=== PATIENT | male | born 1970 | race Caucasian/White ===

== ENCOUNTER 2016-05-25 18:41 | Inpatient (IN) | payer MEDICAID ==
[~2016-05-25] VITALS: Ht 165.1 cm; Wt 81.2 kg
[2016-05-25 19:28] LABS: INFLUENZA B NEGATIVE
[2016-05-25 19:30] LABS: BASO % 0.7 % (0.0-2.0); GRAN # 2.5 (1.4-6.5); GRAN % 90.2 % (42.2-75.2); HEMATOCRIT 24.3 % (42.0-52.0); HEMOGLOBIN 8.4 g/dl (13.5-18.0); LYMPH # 0.2 (1.2-3.4); LYMPH % 8.3 % (20.0-51.0); MEAN CELL VOLUME 87 fl (80.0-100.0); MEAN CORPUSCULAR HEMOGLOBIN 30 pg (27.0-31.0); MEAN CORPUSCULAR HGB CONC 35 g/dl (33.0-37.0); MEAN PLATELET VOLUME 11.6 fl (7.4-10.4); MONO % 0.4 % (1.7-9.3); PLATELET COUNT 75 K/mm3 (130-400); RED BLOOD COUNT 2.78 M/mm3 (4.20-5.60); WHITE BLOOD COUNT 2.8 K/mm3 (4.8-10.8)
[2016-05-25 19:39] LABS: ADJUSTED CALCIUM 8.9 mg/dL (8.4-10.2); ALBUMIN 2.1 gm/dL (3.5-5.0); BILIRUBIN,TOTAL 0.9 mg/dL (0.0-1.0); CALCIUM 7.4 mg/dL (8.4-10.2); CREATININE, serum 1.91 mg/dL (0.66-1.25); POTASSIUM 3.8 mmol/L (3.4-5.0); TOTAL PROTEIN 5.4 gm/dL (6.4-8.2)
[2016-05-25 19:40] LABS: PROTHROMBIN TIME 11.1 SECONDS (9.7-12.8)
[2016-05-25 21:09] LABS: PH 5 (5-8); SQUAMOUS EPITHELIAL 0-2 /hpf; URINE APPEARANCE Hazy; URINE BACTERIA Rare /hpf; URINE BILIRUBIN Negative (NEGATIVE); URINE BLOOD 2+ (NEGATIVE); URINE COLOR Yellow; URINE GLUCOSE 3+ (NEGATIVE); URINE KETONE Negative (NEGATIVE); URINE UROBILINOGEN Negative (NEGATIVE)
[2016-05-25 21:45] LABS: CEREBROSPINAL TUBE #4; CSF APPEARANCE CLEAR; CSF COLOR COLORLESS
[2016-05-25 22:03] LABS: TROPONIN-I 0.023 ng/mL (0.000-0.034)
[2016-05-25 23:56] VITALS: BP 127/84; PULSE 117; TEMP 101.3
[2016-05-26] VITALS (621 sets, daily range): BP systolic 93–135; BP diastolic 65–99; PULSE 85–114; TEMP 97.5–101.3; O2SAT 77–100
[2016-05-27] VITALS (811 sets, daily range): BP systolic 107–171; BP diastolic 67–111; PULSE 86–144; TEMP 98.3–99.7; O2SAT 80–100
[2016-05-27 08:11] LABS: ARTERIAL BLD GAS O2 SATURATION 96.9 % (92-100); ARTERIAL BLD GAS TCO2 CT 16.6; ARTERIAL BLOOD GAS BASE EXCESS -9.5 (-2-2); ARTERIAL BLOOD GAS HCO3 15.6 meq/L (22-26); ARTERIAL BLOOD GAS PHT 7.31 C (7.35-7.45); ARTERIAL BLOOD GAS PO2 98.6 mmHg (80-100); ARTERIAL BLOOD GAS PO2T 98.6 (80-100); ARTERIAL BLOOD GAS pH 7.31 (7.35-7.45); OXYHEMOGLOBIN 95.8 %
[2016-05-27 08:12] LABS: ATS? YES
[2016-05-27 08:21] LABS: MEAN CORPUSCULAR HGB CONC 33 g/dl (33.0-37.0); MEAN PLATELET VOLUME 11.4 fl (7.4-10.4); PLATELET COUNT 91 K/mm3 (130-400); REDCELL DISTRIBUTION WIDTH-CV 14.5 % (11.5-14.5); WHITE BLOOD COUNT 4.6 K/mm3 (4.8-10.8)
[2016-05-27 08:23] LABS: ADD PATHOLOGY DIFF REVIEW NO; HEMATOCRIT 31.3 % (42.0-52.0); HEMOGLOBIN 10.3 g/dl (13.5-18.0); MEAN CELL VOLUME 92 fl (80.0-100.0); MEAN CORPUSCULAR HEMOGLOBIN 30 pg (27.0-31.0)
[2016-05-27 08:29] LABS: ALBUMIN 2.6 gm/dL (3.5-5.0); BILIRUBIN,TOTAL 1.6 mg/dL (0.0-1.0); CALCIUM 7.9 mg/dL (8.4-10.2); CREATININE, serum 2.34 mg/dL (0.66-1.25); POTASSIUM 4.3 mmol/L (3.4-5.0); TOTAL PROTEIN 6.6 gm/dL (6.4-8.2)
[2016-05-27 08:50] LABS: BAND 28 % (0-10); BURR CELLS 1+; EOSINOPHIL 1 % (0-4); NEUTROPHILS 45 % (42.0-75.2); PLATELET ESTIMATE DECREASED (NORMAL); SCHISTOCYTES 1+; TOTAL CELLS COUNTED 100
[2016-05-28] VITALS (614 sets, daily range): BP systolic 135–180; BP diastolic 84–103; PULSE 85–103; TEMP 97.5–98.5; O2SAT 75–98
[2016-05-28 05:17] LABS: BASO % 0.6 % (0.0-2.0); EOS # 0.1 (0.0-0.7); EOS % 1.1 % (0-4.0); GRAN # 4.5 (1.4-6.5); GRAN % 70.7 % (42.2-75.2); LYMPH # 1.1 (1.2-3.4); LYMPH % 17.6 % (20.0-51.0); MEAN CELL VOLUME 91 fl (80.0-100.0); MEAN CORPUSCULAR HGB CONC 33 g/dl (33.0-37.0); MONO # 0.6 (0.1-0.6); MONO % 9.1 % (1.7-9.3); PLATELET COUNT 93 K/mm3 (130-400); RED BLOOD COUNT 2.63 M/mm3 (4.20-5.60); REDCELL DISTRIBUTION WIDTH-CV 14.5 % (11.5-14.5); WHITE BLOOD COUNT 6.4 K/mm3 (4.8-10.8)
[2016-05-28 05:27] LABS: HEMATOCRIT 23.9 % (42.0-52.0); HEMOGLOBIN 7.9 g/dl (13.5-18.0); MEAN CORPUSCULAR HEMOGLOBIN 30 pg (27.0-31.0)
[2016-05-28 05:32] LABS: BILIRUBIN,TOTAL 1.3 mg/dL (0.0-1.0); CALCIUM 7.4 mg/dL (8.4-10.2); CREATININE, serum 2.17 mg/dL (0.66-1.25); POTASSIUM 3.2 mmol/L (3.4-5.0); TOTAL PROTEIN 5.3 gm/dL (6.4-8.2)
[2016-05-28 05:41] LABS: TROPONIN-I 0.027 ng/mL (0.000-0.034)
[2016-05-29 04:17] VITALS: BP 157/88; PULSE 84; TEMP 97.9
[2016-05-29 07:50] LABS: BASO # 0.1 (0.0-0.2); BASO % 0.6 % (0.0-2.0); EOS # 0.1 (0.0-0.7); EOS % 0.9 % (0-4.0); GRAN # 5.5 (1.4-6.5); GRAN % 70.4 % (42.2-75.2); LYMPH # 1.4 (1.2-3.4); LYMPH % 18.5 % (20.0-51.0); MEAN CELL VOLUME 91 fl (80.0-100.0); MEAN CORPUSCULAR HGB CONC 33 g/dl (33.0-37.0); MEAN PLATELET VOLUME 11.1 fl (7.4-10.4); MONO # 0.6 (0.1-0.6); MONO % 8.2 % (1.7-9.3); PLATELET COUNT 121 K/mm3 (130-400); RED BLOOD COUNT 2.96 M/mm3 (4.20-5.60); REDCELL DISTRIBUTION WIDTH-CV 14.4 % (11.5-14.5); WHITE BLOOD COUNT 7.8 K/mm3 (4.8-10.8)
[2016-05-29 07:53] LABS: HEMOGLOBIN 8.8 g/dl (13.5-18.0); MEAN CORPUSCULAR HEMOGLOBIN 30 pg (27.0-31.0)
[2016-05-29 08:06] LABS: ADJUSTED CALCIUM 9.6 mg/dL (8.4-10.2); ALBUMIN 2.3 gm/dL (3.5-5.0); BILIRUBIN,TOTAL 1.6 mg/dL (0.0-1.0); CALCIUM 8.2 mg/dL (8.4-10.2); CREATININE, serum 1.88 mg/dL (0.66-1.25); POTASSIUM 3.6 mmol/L (3.4-5.0); TOTAL PROTEIN 6.1 gm/dL (6.4-8.2)
[2016-05-29 10:06] VITALS: BP 165/89; PULSE 93; TEMP 98.1
[2016-05-29 13:10] VITALS: BP 184/97; PULSE 88; TEMP 97.9
[2016-05-29 16:50] VITALS: BP 199/100; PULSE 88; TEMP 97.9
[2016-05-29 20:41] VITALS: BP 159/107; PULSE 91; TEMP 98.2
[2016-05-30 05:42] VITALS: BP 149/95; PULSE 74; TEMP 98.2
[2016-05-30 11:58] VITALS: BP 196/102; PULSE 88; TEMP 97.7
[2016-05-30 14:08] VITALS: BP 177/91; PULSE 86; TEMP 98.3
[2016-05-30 17:21] VITALS: BP 177/91; PULSE 94; TEMP 98.4
[2016-05-30 22:12] VITALS: BP 171/91; PULSE 90; TEMP 98.3
[2016-05-31 00:15] LABS: PROT-CREAT RATIO, URINE 6.2 (())
[2016-05-31 00:29] VITALS: BP 159/63; PULSE 88; TEMP 98.9
[2016-05-31 03:32] VITALS: BP 164/96; PULSE 78; TEMP 98.9
[2016-05-31 05:24] VITALS: BP 139/52; BP 166/96; PULSE 70; TEMP 97.4
[2016-05-31 07:15] LABS: MEAN CELL VOLUME 92 fl (80.0-100.0); MEAN CORPUSCULAR HGB CONC 33 g/dl (33.0-37.0); MEAN PLATELET VOLUME 11.4 fl (7.4-10.4); PLATELET COUNT 161 K/mm3 (130-400); RED BLOOD COUNT 2.92 M/mm3 (4.20-5.60); REDCELL DISTRIBUTION WIDTH-CV 14.5 % (11.5-14.5); WHITE BLOOD COUNT 6.8 K/mm3 (4.8-10.8)
[2016-05-31 07:19] LABS: ADD PATHOLOGY DIFF REVIEW NO; HEMATOCRIT 26.9 % (42.0-52.0); HEMOGLOBIN 8.8 g/dl (13.5-18.0); MEAN CORPUSCULAR HEMOGLOBIN 30 pg (27.0-31.0)
[2016-05-31 07:20] LABS: CALCIUM 8.2 mg/dL (8.4-10.2); CREATININE, serum 1.85 mg/dL (0.66-1.25); POTASSIUM 3.5 mmol/L (3.4-5.0)
[2016-05-31 07:40] LABS: BAND 15 % (0-10); EOSINOPHIL 3 % (0-4); METAMYELOCYTE 1 % (0-0); NEUTROPHILS 55 % (42.0-75.2); PLATELET ESTIMATE NORMAL (NORMAL); TOTAL CELLS COUNTED 100
[2016-05-31 09:04] VITALS: BP 188/102; PULSE 83; TEMP 98.4
[2016-05-31] MEDS ORDERED: PRINIVIL5 MG PO (10:31)
[2016-05-31] MEDS ORDERED: ASPI325T6 PO (10:31)
[2016-05-31] MEDS ORDERED: LOPRESSOR 550 MG/TAB PO (10:31)
[2016-05-31] MEDS ORDERED: LANTUS100 U/ML SC (10:32)
[2016-05-31] MEDS ORDERED: NOVOLOG FLEX100 U/ML SQ (10:33)
[2016-05-31 14:05] VITALS: BP 188/100; PULSE 78; TEMP 98
[2016-06-01] MEDS ORDERED: APIDRA SOLOS100 U/ML SQ (12:28)
[2016-06-02] MEDS ORDERED: ROCEPHIN 2GM VIAL21 IJ (10:28)
[2016-06-02] MEDS ORDERED: CUBICIN 500MG500 MG IV (10:28)
[2016-06-21] MEDS ORDERED: PRINIVIL10 MG PO (10:13)
[2016-06-22] MEDS ORDERED: KLOR-CON M2020 MEQ PO (11:52)
[2016-06-22] MEDS ORDERED: LASIX 40MG TABL40 MG PO (11:53)
== END 2016-05-31 17:50 | disposition home or self-care (01) | DRG 871 ==
LOC: COL.ER 18:41 → ICU 23:25 → SURG 23:25 → IMCU 05-26 15:25 → ICU 05-27 08:20 → SURG 05-28 13:45
PROVIDERS: Emergency Medicine; Internal Medicine; Nurse Practitioner Family
PROC: 009U3ZX Drainage of Spinal Canal, Percutaneous Approach, Diagnostic (ICD-10-PCS; principal; 2016-05-25)
PROC: 02H633Z Insertion of Infusion Device into Right Atrium, Percutaneous Approach (ICD-10-PCS; 2016-05-27)
DX: A41.9 Sepsis, unspecified organism (principal); J96.01 Acute respiratory failure with hypoxia; J69.0 Pneumonitis due to inhalation of food and vomit; N17.9 Acute kidney failure, unspecified; M86.9 Osteomyelitis, unspecified; E11.622 Type 2 diabetes mellitus with other skin ulcer; E11.65 Type 2 diabetes mellitus with hyperglycemia; E11.40 Type 2 diabetes mellitus with diabetic neuropathy, unspecified; L97.519 Non-pressure chronic ulcer of other part of right foot with unspecified severity; D69.6 Thrombocytopenia, unspecified; N50.89 Other specified disorders of the male genital organs; I12.9 Hypertensive chronic kidney disease with stage 1 through stage 4 chronic kidney disease, or unspecified chronic kidney disease; E11.22 Type 2 diabetes mellitus with diabetic chronic kidney disease; N18.9 Chronic kidney disease, unspecified; F17.210 Nicotine dependence, cigarettes, uncomplicated; Z79.4 Long term (current) use of insulin; Z91.14 Patient's other noncompliance with medication regimen
CPT/HCPCS: 99223-AI; 99232-AI; 99233-AI; 99239; A6197; A9537; A9585; C1751; J0692; J0696; J0878; J1200; J1644; J1815; J1885; J2060; J2270; J2543; J2765; J2805; J3370; J3480; J7030; J7050

== ENCOUNTER 2016-06-30 11:06 | Emergency (ER) | payer MEDICAID ==
[~2016-06-30] VITALS: Ht 165.1 cm; Wt 71.4 kg
[~2016-06-30 11:06] MED LIST: APIDRA SOLOS100 U/ML SQ; ASPI325T6 PO; CUBICIN 500MG500 MG IV; KLOR-CON M2020 MEQ PO; LANTUS100 U/ML SC; LASIX 40MG TABL40 MG PO; LOPRESSOR 550 MG/TAB PO; NOVOLOG FLEX100 U/ML SQ; PRINIVIL10 MG PO; PRINIVIL5 MG PO; ROCEPHIN 2GM VIAL21 IJ
[2016-06-30 11:16] VITALS: TEMP 98.2
[2016-06-30 12:09] LABS: BASO % 0.6 % (0.0-2.0); EOS # 0.1 (0.0-0.7); EOS % 2.8 % (0-4.0); GRAN # 3.1 (1.4-6.5); HEMATOCRIT 25.6 % (42.0-52.0); HEMOGLOBIN 8.7 g/dl (13.5-18.0); LYMPH # 1.4 (1.2-3.4); LYMPH % 27.3 % (20.0-51.0); MEAN CELL VOLUME 87 fl (80.0-100.0); MEAN CORPUSCULAR HEMOGLOBIN 30 pg (27.0-31.0); MEAN CORPUSCULAR HGB CONC 34 g/dl (33.0-37.0); MEAN PLATELET VOLUME 11.2 fl (7.4-10.4); MONO # 0.3 (0.1-0.6); MONO % 6.1 % (1.7-9.3); PLATELET COUNT 158 K/mm3 (130-400); RED BLOOD COUNT 2.93 M/mm3 (4.20-5.60); REDCELL DISTRIBUTION WIDTH-CV 14.1 % (11.5-14.5); WHITE BLOOD COUNT 4.9 K/mm3 (4.8-10.8)
[2016-06-30 12:12] LABS: ADJUSTED CALCIUM 9.9 mg/dL (8.4-10.2); ALBUMIN 2.3 gm/dL (3.5-5.0); BILIRUBIN,TOTAL 0.5 mg/dL (0.0-1.0); CALCIUM 8.5 mg/dL (8.4-10.2); CREATININE, serum 1.89 mg/dL (0.66-1.25); POTASSIUM 3.8 mmol/L (3.4-5.0); TOTAL PROTEIN 5.8 gm/dL (6.4-8.2)
[2016-06-30] MEDS ORDERED: ZESTRIL40 MG PO (12:49)
[2016-06-30 12:55] VITALS: BP 154/90; PULSE 92
== END 2016-06-30 13:03 | disposition home or self-care (01) ==
LOC: COL.ER 11:06
PROVIDERS: Emergency Medicine
DX: I10 Essential (primary) hypertension (principal); E11.9 Type 2 diabetes mellitus without complications; Z79.4 Long term (current) use of insulin
CPT/HCPCS: J0360

== ENCOUNTER 2016-07-12 10:00 | Outpatient (RCR) | payer MEDICAID ==
[2016-06-01 10:46] VITALS: BP 190/97; PULSE 92; TEMP 98.2
[2016-06-02 10:28] VITALS: BP 172/88; PULSE 72; TEMP 98
[2016-06-02 10:38] LABS: BASO % 0.5 % (0.0-2.0); EOS # 0.1 (0.0-0.7); EOS % 1.9 % (0-4.0); GRAN # 4.5 (1.4-6.5); GRAN % 70.7 % (42.2-75.2); LYMPH # 1.3 (1.2-3.4); LYMPH % 20.2 % (20.0-51.0); MEAN CELL VOLUME 89 fl (80.0-100.0); MEAN CORPUSCULAR HGB CONC 33 g/dl (33.0-37.0); MEAN PLATELET VOLUME 10.8 fl (7.4-10.4); MONO # 0.4 (0.1-0.6); MONO % 5.6 % (1.7-9.3); PLATELET COUNT 178 K/mm3 (130-400); RED BLOOD COUNT 3.25 M/mm3 (4.20-5.60); REDCELL DISTRIBUTION WIDTH-CV 14.8 % (11.5-14.5); WHITE BLOOD COUNT 6.3 K/mm3 (4.8-10.8)
[2016-06-02 10:48] LABS: HEMATOCRIT 28.8 % (42.0-52.0); HEMOGLOBIN 9.6 g/dl (13.5-18.0); MEAN CORPUSCULAR HEMOGLOBIN 30 pg (27.0-31.0)
[2016-06-02 10:55] LABS: ADJUSTED CALCIUM 9.4 mg/dL (8.4-10.2); ALBUMIN 2.2 gm/dL (3.5-5.0); BILIRUBIN,TOTAL 0.7 mg/dL (0.0-1.0); C-REACTIVE PROTEIN 5.2 mg/dL (0.0-0.9); CREATININE, serum 1.38 mg/dL (0.66-1.25); POTASSIUM 3.1 mmol/L (3.4-5.0); TOTAL PROTEIN 5.8 gm/dL (6.4-8.2)
[2016-06-02 12:23] LABS: ERYTHROCYTE SEDIMENTATION RATE > 140 mm/hr (0-15)
[2016-06-03 10:10] VITALS: BP 182/97; PULSE 79; TEMP 98.5
[2016-06-04 11:11] VITALS: BP 205/104; PULSE 85; TEMP 98.3
[2016-06-04 11:34] VITALS: BP 204/105; PULSE 82
[2016-06-05 10:32] VITALS: BP 221/117; PULSE 93; TEMP 98.3
[2016-06-05 10:50] VITALS: BP 207/105; PULSE 84
[2016-06-06 11:15] VITALS: BP 192/102; PULSE 79; TEMP 98
[2016-06-07 11:11] VITALS: BP 207/103; PULSE 77; TEMP 97.8
[2016-06-08 11:21] VITALS: BP 166/90; PULSE 76; TEMP 97.9
[2016-06-09 10:43] LABS: HEMOGLOBIN 8.3 g/dl (13.5-18.0); MEAN CELL VOLUME 89 fl (80.0-100.0); MEAN CORPUSCULAR HEMOGLOBIN 30 pg (27.0-31.0); MEAN CORPUSCULAR HGB CONC 33 g/dl (33.0-37.0); MEAN PLATELET VOLUME 10.9 fl (7.4-10.4); PLATELET COUNT 165 K/mm3 (130-400); RED BLOOD COUNT 2.81 M/mm3 (4.20-5.60); REDCELL DISTRIBUTION WIDTH-CV 15.2 % (11.5-14.5); WHITE BLOOD COUNT 5.5 K/mm3 (4.8-10.8)
[2016-06-09 10:57] LABS: ADJUSTED CALCIUM 9.4 mg/dL (8.4-10.2); ALBUMIN 2.2 gm/dL (3.5-5.0); BILIRUBIN,TOTAL 0.5 mg/dL (0.0-1.0); C-REACTIVE PROTEIN 1.3 mg/dL (0.0-0.9); CREATININE, serum 1.53 mg/dL (0.66-1.25); POTASSIUM 3.1 mmol/L (3.4-5.0); TOTAL PROTEIN 5.9 gm/dL (6.4-8.2)
[2016-06-09 11:04] LABS: ERYTHROCYTE SEDIMENTATION RATE > 140 mm/hr (0-15)
[2016-06-09 11:45] VITALS: BP 191/96; PULSE 78; TEMP 98.2
[2016-06-10 10:20] VITALS: BP 165/85; PULSE 75; TEMP 98.2
[2016-06-11 08:24] VITALS: BP 194/100; PULSE 80; TEMP 98.3
[2016-06-12 08:30] VITALS: BP 197/98; PULSE 70; TEMP 97.7
[2016-06-12 10:58] LABS: PH 6 (5-8); SQUAMOUS EPITHELIAL 0-2 /hpf; URINE APPEARANCE Hazy; URINE BACTERIA Rare /hpf; URINE BILIRUBIN Negative (NEGATIVE); URINE BLOOD 2+ (NEGATIVE); URINE COLOR Yellow; URINE GLUCOSE 3+ (NEGATIVE); URINE KETONE Negative (NEGATIVE); URINE UROBILINOGEN Negative (NEGATIVE); URINE WBC 20-50 /hpf
[2016-06-13 11:00] VITALS: BP 166/88; PULSE 68; TEMP 98.4
[2016-06-13 13:45] LABS: URINE COLLECTION TIME 19 HOURS
[2016-06-13 13:54] LABS: CREATININE, serum 1.65 mg/dL (0.66-1.25)
[2016-06-14 10:43] VITALS: BP 163/83; PULSE 69; TEMP 98.2
[2016-06-15 10:31] VITALS: BP 192/92; PULSE 74; TEMP 98.1
[2016-06-16 11:10] VITALS: BP 172/96; PULSE 66; TEMP 98
[2016-06-16 11:41] LABS: MEAN CELL VOLUME 92 fl (80.0-100.0); MEAN CORPUSCULAR HGB CONC 33 g/dl (33.0-37.0); MEAN PLATELET VOLUME 10.5 fl (7.4-10.4); PLATELET COUNT 164 K/mm3 (130-400); RED BLOOD COUNT 2.72 M/mm3 (4.20-5.60); REDCELL DISTRIBUTION WIDTH-CV 15.9 % (11.5-14.5); WHITE BLOOD COUNT 5.5 K/mm3 (4.8-10.8)
[2016-06-16 11:48] LABS: HEMATOCRIT 24.9 % (42.0-52.0); HEMOGLOBIN 8.3 g/dl (13.5-18.0); MEAN CORPUSCULAR HEMOGLOBIN 31 pg (27.0-31.0)
[2016-06-16 12:00] LABS: ERYTHROCYTE SEDIMENTATION RATE > 140 mm/hr (0-15)
[2016-06-16 12:01] LABS: ADJUSTED CALCIUM 9.3 mg/dL (8.4-10.2); ALBUMIN 2.2 gm/dL (3.5-5.0); BILIRUBIN,TOTAL 0.5 mg/dL (0.0-1.0); C-REACTIVE PROTEIN 1.2 mg/dL (0.0-0.9); CALCIUM 7.9 mg/dL (8.4-10.2); CREATININE, serum 1.64 mg/dL (0.66-1.25); TOTAL PROTEIN 5.8 gm/dL (6.4-8.2)
[2016-06-17 08:27] VITALS: BP 196/106; PULSE 80; TEMP 98.3
[2016-06-18 10:16] VITALS: BP 215/106; PULSE 83; TEMP 97.9
[2016-06-18 10:56] VITALS: BP 188/98; PULSE 74
[2016-06-19 11:00] VITALS: BP 159/88; PULSE 77; TEMP 97.9
[2016-06-20 10:25] VITALS: BP 209/115; PULSE 95; TEMP 98.2
[2016-06-21 10:17] VITALS: BP 184/98; PULSE 88; TEMP 98.2
[2016-06-22 11:50] VITALS: BP 181/97; PULSE 85; TEMP 98.5
[2016-06-23 10:14] VITALS: BP 200/108; PULSE 92; TEMP 98.3
[2016-06-24 10:33] VITALS: BP 158/90; PULSE 91; TEMP 97.9
[2016-06-24 10:55] LABS: MEAN CELL VOLUME 88 fl (80.0-100.0); MEAN CORPUSCULAR HGB CONC 34 g/dl (33.0-37.0); MEAN PLATELET VOLUME 10.3 fl (7.4-10.4); PLATELET COUNT 181 K/mm3 (130-400); RED BLOOD COUNT 3.11 M/mm3 (4.20-5.60); REDCELL DISTRIBUTION WIDTH-CV 14.6 % (11.5-14.5)
[2016-06-24 11:09] LABS: ADJUSTED CALCIUM 9.5 mg/dL (8.4-10.2); ALBUMIN 2.4 gm/dL (3.5-5.0); BILIRUBIN,TOTAL 0.5 mg/dL (0.0-1.0); C-REACTIVE PROTEIN 1.1 mg/dL (0.0-0.9); CALCIUM 8.2 mg/dL (8.4-10.2); CREATININE, serum 1.87 mg/dL (0.66-1.25); POTASSIUM 3.2 mmol/L (3.4-5.0); TOTAL PROTEIN 6.1 gm/dL (6.4-8.2)
[2016-06-24 11:19] LABS: HEMATOCRIT 27.4 % (42.0-52.0); HEMOGLOBIN 9.4 g/dl (13.5-18.0); MEAN CORPUSCULAR HEMOGLOBIN 30 pg (27.0-31.0)
[2016-06-24 11:48] LABS: ERYTHROCYTE SEDIMENTATION RATE > 140 mm/hr (0-15)
[2016-06-26 07:58] VITALS: BP 203/108; PULSE 97; TEMP 98
[2016-06-26 08:35] VITALS: BP 207/107; PULSE 97
[2016-06-27 10:11] VITALS: BP 197/108; PULSE 92; TEMP 98.2
[2016-06-28 10:06] VITALS: BP 169/85; PULSE 88; TEMP 98
[2016-06-29 10:33] VITALS: BP 223/110; PULSE 78; TEMP 97.6
[2016-06-30 10:31] VITALS: BP 208/111; PULSE 88; TEMP 97.8
[2016-07-01 10:15] VITALS: BP 180/97; PULSE 87; TEMP 97.8
[2016-07-02 08:15] VITALS: BP 199/108; PULSE 92; TEMP 97.9
[2016-07-02 09:04] VITALS: BP 173/124; BP 211/118
[2016-07-03 08:24] VITALS: BP 170/97; PULSE 83; TEMP 98.2
[2016-07-04 10:05] VITALS: BP 199/108; PULSE 81; TEMP 97.8
[2016-07-05 10:17] VITALS: BP 215/108; PULSE 96; TEMP 97.6
[2016-07-06 09:55] VITALS: BP 206/112; PULSE 98; TEMP 98.2
[2016-07-07 10:40] LABS: MEAN CELL VOLUME 91 fl (80.0-100.0); MEAN CORPUSCULAR HGB CONC 33 g/dl (33.0-37.0); MEAN PLATELET VOLUME 10.8 fl (7.4-10.4); PLATELET COUNT 185 K/mm3 (130-400); RED BLOOD COUNT 3.05 M/mm3 (4.20-5.60); REDCELL DISTRIBUTION WIDTH-CV 13.9 % (11.5-14.5); WHITE BLOOD COUNT 5.5 K/mm3 (4.8-10.8)
[2016-07-07 10:41] LABS: HEMATOCRIT 27.7 % (42.0-52.0); HEMOGLOBIN 9.2 g/dl (13.5-18.0); MEAN CORPUSCULAR HEMOGLOBIN 30 pg (27.0-31.0)
[2016-07-07 11:00] LABS: ADJUSTED CALCIUM 9.6 mg/dL (8.4-10.2); ALBUMIN 2.4 gm/dL (3.5-5.0); BILIRUBIN,TOTAL 0.5 mg/dL (0.0-1.0); CALCIUM 8.3 mg/dL (8.4-10.2); CREATININE, serum 2.06 mg/dL (0.66-1.25); TOTAL PROTEIN 5.9 gm/dL (6.4-8.2)
[2016-07-07 11:04] LABS: C-REACTIVE PROTEIN 0.5 mg/dL (0.0-0.9)
[2016-07-08 10:13] VITALS: BP 154/84; PULSE 74; TEMP 98
[2016-07-09 09:04] VITALS: BP 208/111; PULSE 91; TEMP 97.8
[2016-07-09 09:40] VITALS: BP 200/117; PULSE 89
[2016-07-10 08:56] VITALS: BP 137/86; PULSE 90; TEMP 97.6
[2016-07-11 08:10] VITALS: BP 181/101; PULSE 76; TEMP 98
[~2016-07-12] VITALS: Ht 165.1 cm; Wt 68.2 kg
[~2016-07-12 10:00] MED LIST changes: +ZESTRIL40 MG PO
[2016-07-12 10:59] VITALS: BP 177/93; PULSE 77; TEMP 98.5
[2016-07-14 12:44] VITALS: BP 189/102; PULSE 76; TEMP 97.9
== END 2016-07-14 12:46 | disposition home or self-care (01) ==
LOC: EUO 10:00
PROVIDERS: Internal Medicine
DX: Z79.2 Long term (current) use of antibiotics (principal)
CPT/HCPCS: J0696; J0878; J1644

== ENCOUNTER → 2016-07-30 | Outpatient (CLI) | payer SELFPAY ==
[2016-07-30 13:36] LABS: MEAN CELL VOLUME 87 fl (80.0-100.0); MEAN CORPUSCULAR HGB CONC 35 g/dl (33.0-37.0); MEAN PLATELET VOLUME 10.8 fl (7.4-10.4); PLATELET COUNT 173 K/mm3 (130-400); RED BLOOD COUNT 3.38 M/mm3 (4.20-5.60); REDCELL DISTRIBUTION WIDTH-CV 12.7 % (11.5-14.5); WHITE BLOOD COUNT 5.8 K/mm3 (4.8-10.8)
[2016-07-30 13:38] LABS: HEMATOCRIT 29.5 % (42.0-52.0); HEMOGLOBIN 10.2 g/dl (13.5-18.0); MEAN CORPUSCULAR HEMOGLOBIN 30 pg (27.0-31.0)
[2016-07-30 13:48] LABS: ADJUSTED CALCIUM 9.5 mg/dL (8.4-10.2); ALBUMIN 2.4 gm/dL (3.5-5.0); BILIRUBIN,TOTAL 0.5 mg/dL (0.0-1.0); CALCIUM 8.2 mg/dL (8.4-10.2); CREATININE, serum 1.8 mg/dL (0.66-1.25); POTASSIUM 3.9 mmol/L (3.4-5.0); TOTAL PROTEIN 5.8 gm/dL (6.4-8.2)
== END ==
LOC: COL.LAB 13:17
PROVIDERS: Internal Medicine
DX: E11.9 Type 2 diabetes mellitus without complications (principal)

== ENCOUNTER → 2016-10-19 | Outpatient (CLI) | payer SELFPAY ==
[2016-10-19 12:55] LABS: MEAN CELL VOLUME 86 fl (80.0-100.0); MEAN CORPUSCULAR HGB CONC 35 g/dl (33.0-37.0); PLATELET COUNT 170 K/mm3 (130-400); RED BLOOD COUNT 3.08 M/mm3 (4.20-5.60); REDCELL DISTRIBUTION WIDTH-CV 12.6 % (11.5-14.5); WHITE BLOOD COUNT 6.5 K/mm3 (4.8-10.8)
[2016-10-19 12:58] LABS: HEMATOCRIT 26.5 % (42.0-52.0); HEMOGLOBIN 9.3 g/dl (13.5-18.0); MEAN CORPUSCULAR HEMOGLOBIN 30 pg (27.0-31.0)
[2016-10-19 13:04] LABS: ADJUSTED CALCIUM 9.3 mg/dL (8.4-10.2); ALBUMIN 2.1 gm/dL (3.5-5.0); BILIRUBIN,TOTAL 0.4 mg/dL (0.0-1.0); CALCIUM 7.8 mg/dL (8.4-10.2); CREATININE, serum 2.33 mg/dL (0.66-1.25); POTASSIUM 4.6 mmol/L (3.4-5.0); TOTAL PROTEIN 5.1 gm/dL (6.4-8.2)
== END ==
LOC: COL.LAB 12:29
PROVIDERS: Internal Medicine
DX: E11.22 Type 2 diabetes mellitus with diabetic chronic kidney disease (principal)

== ENCOUNTER → 2016-12-29 | Outpatient (CLI) | payer SELFPAY ==
[2016-12-29 09:01] LABS: BASO # 0.1 (0.0-0.2); BASO % 0.9 % (0.0-2.0); EOS # 0.3 (0.0-0.7); EOS % 3.7 % (0-4.0); GRAN # 4.5 (1.4-6.5); GRAN % 67.8 % (42.2-75.2); LYMPH # 1.5 (1.2-3.4); LYMPH % 22.4 % (20.0-51.0); MEAN CELL VOLUME 91 fl (80.0-100.0); MEAN CORPUSCULAR HGB CONC 35 g/dl (33.0-37.0); MEAN PLATELET VOLUME 9.1 fl (7.4-10.4); MONO # 0.3 (0.1-0.6); MONO % 5.1 % (1.7-9.3); PLATELET COUNT 201 K/mm3 (130-400); RED BLOOD COUNT 2.55 M/mm3 (4.20-5.60); REDCELL DISTRIBUTION WIDTH-CV 12.8 % (11.5-14.5); WHITE BLOOD COUNT 6.7 K/mm3 (4.8-10.8)
[2016-12-29 09:08] LABS: HEMATOCRIT 23.2 % (42.0-52.0); MEAN CORPUSCULAR HEMOGLOBIN 31 pg (27.0-31.0)
[2016-12-29 09:23] LABS: CALCIUM 8.4 mg/dL (8.4-10.2); CREATININE, serum 3.27 mg/dL (0.66-1.25); POTASSIUM 4.7 mmol/L (3.4-5.0)
== END ==
LOC: COL.LAB 08:14
DX: N18.3 Chronic kidney disease, stage 3 (moderate) (principal); N17.9 Acute kidney failure, unspecified

== ENCOUNTER → 2017-04-26 | Outpatient (CLI) | payer MEDICAID ==
[~2017-04-26] MED LIST changes: +NEURONTIN100 MG/CAP PO; +NORCO 325 MG-51 TAB PO; +NORVASC 10MG10 MG PO
== END ==
LOC: COL.VAS 11:53
DX: Z49.02 Encounter for fitting and adjustment of peritoneal dialysis catheter (principal); N18.6 End stage renal disease
CPT/HCPCS: G0365

== ENCOUNTER 2017-05-26 05:24 | Day surgery (SDC) | payer MEDICAID ==
[2017-05-26] VITALS (8 sets, daily range): BP systolic 117–219; BP diastolic 64–106; PULSE 64–74; TEMP 98.8
[~2017-05-26] VITALS: Ht 165.1 cm; Wt 69.4 kg
[2017-05-26 06:01] LABS: MEAN CELL VOLUME 84 fl (80.0-100.0); MEAN CORPUSCULAR HGB CONC 34 g/dl (33.0-37.0); PLATELET COUNT 108 K/mm3 (130-400); RED BLOOD COUNT 3.29 M/mm3 (4.20-5.60)
[2017-05-26 06:05] LABS: HEMATOCRIT 27.7 % (42.0-52.0); HEMOGLOBIN 9.4 g/dl (13.5-18.0); MEAN CORPUSCULAR HEMOGLOBIN 29 pg (27.0-31.0)
[2017-05-26 06:11] LABS: ALBUMIN 3.5 gm/dL (3.5-5.0); BILIRUBIN,TOTAL 0.5 mg/dL (0.0-1.0); CALCIUM 8.3 mg/dL (8.4-10.2); TOTAL PROTEIN 6.9 gm/dL (6.4-8.2)
[2017-05-26 06:21] LABS: CREATININE, serum 9.12 mg/dL (0.66-1.25)
[2017-05-26] MEDS ORDERED: NORVASC 10MG10 MG PO (06:32)
[2017-05-26] MEDS ORDERED: LYRICA 25MG CAP25 MG PO (06:33)
[2017-05-26] MEDS ORDERED: [UNRECOGNIZED DRUG - REMARK] OD (06:34)
[2017-05-26] MEDS ORDERED: ASPIRIN 32325 MG/TAB PO (06:35)
[2017-05-26] MEDS ORDERED: LANTUS100 U/ML SQ (06:35)
[2017-05-26] MEDS ORDERED: LASIX 80MG TABL80 MG PO (06:36)
[2017-05-26] MEDS ORDERED: NORCO 325 MG-51 TAB PO (09:08)
== END 2017-05-26 10:45 | disposition home or self-care (01) ==
LOC: SDCO 05:24
PROVIDERS: Nurse Anesthetist, Certified Registered
DX: I12.0 Hypertensive chronic kidney disease with stage 5 chronic kidney disease or end stage renal disease (principal); E11.22 Type 2 diabetes mellitus with diabetic chronic kidney disease; N18.6 End stage renal disease; E11.40 Type 2 diabetes mellitus with diabetic neuropathy, unspecified; D64.9 Anemia, unspecified; Z99.2 Dependence on renal dialysis; Z79.4 Long term (current) use of insulin; Z87.891 Personal history of nicotine dependence; Z83.3 Family history of diabetes mellitus
CPT/HCPCS: J0360; J0690; J1644; J1815; J2250; J2405; J2704; J3010

== ENCOUNTER → 2017-06-01 | Outpatient (CLI) | payer MEDICAID ==
[~2017-06-01] MED LIST changes: +ASPIRIN 32325 MG/TAB PO; +LANTUS100 U/ML SQ; +LASIX 80MG TABL80 MG PO; +LYRICA 25MG CAP25 MG PO; +[UNRECOGNIZED DRUG - REMARK] OD
== END ==
LOC: COL.VAS 10:43
DX: N18.6 End stage renal disease (principal)
CPT/HCPCS: G0365

== ENCOUNTER → 2017-06-13 | Outpatient (REF) ==
[2017-06-13 13:54] LABS: CALCIUM 8.7 mg/dL (8.4-10.2); POTASSIUM 4.7 mmol/L (3.4-5.0)
[2017-06-13 14:00] LABS: CREATININE, serum 8.2 mg/dL (0.66-1.25)
== END ==
LOC: ZMSC 13:14
PROVIDERS: Surgery
DX: Z01.89 Encounter for other specified special examinations (principal)

== ENCOUNTER → 2017-07-24 | Outpatient (CLI) | payer MEDICAID | LOC: COL.VAS 12:28 | DX: N18.5 Chronic kidney disease, stage 5 (principal) ==

== ENCOUNTER → 2017-09-29 | Outpatient (CLI) | payer MEDICARE, MEDICAID | LOC: COL.LAB 11:00 | DX: R61 Generalized hyperhidrosis (principal) ==

== ENCOUNTER → 2017-10-02 | Outpatient (CLI) | payer MEDICARE, MEDICAID ==
[~2017-10-02] VITALS: Ht 165.1 cm; Wt 73.7 kg
[2017-10-02 14:07] VITALS: BP 162/91; PULSE 71
[2017-10-02 14:34] VITALS: BP 197/105; PULSE 68
== END ==
LOC: COL.RAD 13:45
DX: Z49.01 Encounter for fitting and adjustment of extracorporeal dialysis catheter (principal)

== ENCOUNTER 2017-10-05 16:37 | Emergency (ER) | payer MEDICARE, MEDICAID ==
[~2017-10-05] VITALS: Ht 165.1 cm; Wt 68.2 kg
[2017-10-05 17:15] LABS: BASO # 0.1 (0.0-0.2); BASO % 0.7 % (0.0-2.0); EOS # 0.2 (0.0-0.7); EOS % 2.6 % (0-4.0); GRAN % 81.8 % (42.2-75.2); HEMATOCRIT 28.5 % (42.0-52.0); HEMOGLOBIN 9.4 g/dl (13.5-18.0); LYMPH # 0.9 (1.2-3.4); MEAN CELL VOLUME 91 fl (80.0-100.0); MEAN CORPUSCULAR HEMOGLOBIN 30 pg (27.0-31.0); MEAN CORPUSCULAR HGB CONC 33 g/dl (33.0-37.0); MEAN PLATELET VOLUME 9.6 fl (7.4-10.4); MONO # 0.4 (0.1-0.6); MONO % 4.4 % (1.7-9.3); PLATELET COUNT 161 K/mm3 (130-400); RED BLOOD COUNT 3.12 M/mm3 (4.20-5.60); REDCELL DISTRIBUTION WIDTH-CV 13.4 % (11.5-14.5)
[2017-10-05 17:23] LABS: ALANINE AMINOTRANSFERASE 24 U/L (21-72); ALBUMIN 3.4 gm/dL (3.5-5.0); ALKALINE PHOSPHATASE 86 U/L (50-136); ANION GAP 14 mmol/L (7-16); AST,SGOT 24 U/L (15-37); BILIRUBIN,TOTAL 0.4 mg/dL (0.0-1.0); BLOOD UREA NITROGEN 42 mg/dL (9-20); CALCIUM 7.7 mg/dL (8.4-10.2); CARBON DIOXIDE 28 mmol/L (22-30); CHLORIDE 101 mmol/L (98-107); GLUCOSE 114 mg/dL (74-106); POTASSIUM 4.7 mmol/L (3.4-5.0); SODIUM 144 mmol/L (137-145); TOTAL PROTEIN 7.3 gm/dL (6.4-8.2)
[2017-10-05 17:26] LABS: ACETAMINOPHEN < 10 ug/mL (10-30); ALCOHOL(ethanol),MEDICAL < 10 mg/dL; SALICYLATE < 1.0 mg/dL
[2017-10-05 17:27] LABS: AMMONIA 12 umol/L (11-35)
[2017-10-05 17:57] LABS: TROPONIN-I 0.035 ng/mL (0.000-0.034)
[2017-10-05 21:00] VITALS: BP 184/104; PULSE 71
== END 2017-10-05 21:35 | disposition home or self-care (01) ==
LOC: COL.ER 16:37
PROVIDERS: Emergency Medicine
DX: E11.649 Type 2 diabetes mellitus with hypoglycemia without coma (principal); E11.22 Type 2 diabetes mellitus with diabetic chronic kidney disease; I12.9 Hypertensive chronic kidney disease with stage 1 through stage 4 chronic kidney disease, or unspecified chronic kidney disease; N18.9 Chronic kidney disease, unspecified; F17.210 Nicotine dependence, cigarettes, uncomplicated; Z99.2 Dependence on renal dialysis; Z79.82 Long term (current) use of aspirin; Z79.4 Long term (current) use of insulin